=== PATIENT | female | born 1975 | race Caucasian/White ===

== ENCOUNTER 2018-06-19 04:18 | Emergency (ER) | payer MEDICAID ==
[~2018-06-19] VITALS: Ht 160 cm; Wt 81.8 kg
[2018-06-19 04:39] LABS: APPEARANCE,URINE CLOUDY (CLEAR); GLUCOSE, URINE (UA) NEGATIVE (NEGATIVE); KETONES,URINE 15 mg/dL (NEGATIVE); LEUKOCYTE ESTERASE ,URINE LARGE (NEGATIVE); NITRATE,URINE POSITIVE (NEGATIVE); OCCULT BLOOD,URINE TRACE (NEGATIVE); PROTEIN,URINE POS 1+ (NEGATIVE)
[2018-06-19 04:45] LABS: BILIRUBIN,URINE PRELIM. POSITIVE (NEGATIVE)
[2018-06-19 04:46] LABS: BACTERIA,URINE Few /HPF (None Seen); SQUAMOUS EPITHELIAL CELL,UR Few /LPF (None Seen); WBC,URINE 51-100 /HPF (0-5)
[2018-06-19] MEDS ORDERED: CIPROFLOXACIN HCL 250 MG TABLET PO ONE (05:00)
[2018-06-19] MEDS ORDERED: TraMADol HCL 50 MG TABLET PO ONE (05:00)
[2018-06-19 05:13] VITALS: BP 133/73
== END 2018-06-19 05:54 | disposition home or self-care (01) ==
LOC: EMS 04:18
DX: N12 Tubulo-interstitial nephritis, not specified as acute or chronic (principal)
CPT/HCPCS: 87086

== ENCOUNTER 2023-05-18 09:15 | Emergency (ER) | payer MEDICAID ==
[~2023-05-18] VITALS: Ht 160 cm; Wt 85.9 kg
[2023-05-18 09:24] VITALS: TEMP 98.1
[2023-05-18 09:45] LABS: APPEARANCE,URINE CLEAR (CLEAR); BILIRUBIN,URINE NEGATIVE (NEGATIVE); COLOR,URINE YELLOW (YELLOW); GLUCOSE, URINE (UA) NEGATIVE (NEGATIVE); KETONES,URINE TRACE mg/dL (NEGATIVE); LEUKOCYTE ESTERASE ,URINE SMALL (NEGATIVE); NITRATE,URINE NEGATIVE (NEGATIVE); OCCULT BLOOD,URINE LARGE (NEGATIVE); PROTEIN,URINE TRACE mg/dL (NEGATIVE); SPECIFIC GRAVITIY, URINE 1.032 (1.003-1.030); UROBILINOGEN,URINE <=1.0 mg/dL (<=1.0)
[2023-05-18 10:42] LABS: SQUAMOUS EPITHELIAL CELL,UR Few /LPF (None Seen)
[2023-05-18 10:43] LABS: BACTERIA,URINE Rare /HPF (None Seen); RBC,URINE 26-50 /HPF (0-2)
[2023-05-18] MEDS: CEPHALEXIN MONOHYDRATE 500 MG CAPSULE PO ONE (11:00)
[2023-05-18] MEDS: OxyCODONE HCL/ACETAMINOPHEN 5-325 MG TABLET PO ONE (11:01)
[2023-05-18] MEDS ORDERED: CEPH-558 PO (11:19)
[2023-05-18 11:49] VITALS: BP 140/86; PULSE 76; RESP 16
== END 2023-05-18 11:50 | disposition home or self-care (01) ==
LOC: EMS 09:19
DX: M79.644 Pain in right finger(s) (principal)
CPT/HCPCS: 81001; 99284; 73140-TC; Z7502; Z7610